=== PATIENT | male | born 1995 | race Caucasian/White ===

== ENCOUNTER 2024-01-12 00:13 | Emergency (ER) | payer OTHER ==
[~2024-01-12] VITALS: Ht 180.3 cm; Wt 93.2 kg
[~2024-01-12 00:13] MED LIST: CEPHALEXIN500 M1 PO
[2024-01-12 00:17] VITALS: TEMP 97.1
[2024-01-12 00:57] LABS: BASO # 0.1 K/mm3 (0.0-0.2); BASO % 0.7 % (0.0-2.0); EOS # 0.2 K/mm3 (0.0-0.7); EOS % 3.2 % (0.0-4.0); GRAN # 3.8 K/mm3 (1.4-6.5); GRAN % 52.6 % (42.2-75.2); HEMATOCRIT 41.3 % (42.0-52.0); HEMOGLOBIN 14.1 g/dl (13.5-18.0); LYMPH # 2.2 K/mm3 (1.2-3.4); LYMPH % 30.8 % (20.0-51.0); MEAN CELL VOLUME 84 fl (80.0-100.0); MEAN CORPUSCULAR HEMOGLOBIN 29 pg (27-31); MEAN CORPUSCULAR HGB CONC 34 g/dl (33.0-37.0); MEAN PLATELET VOLUME 10.1 fl (7.4-10.4); MONO # 0.9 K/mm3 (0.1-0.6); MONO % 12.4 % (1.7-9.3); PLATELET COUNT 240 K/mm3 (130-400); RED BLOOD COUNT 4.94 M/mm3 (4.20-5.60); REDCELL DISTRIBUTION WIDTH-CV 12.7 % (11.5-14.5)
[2024-01-12 01:06] LABS: INR 1.1 (0.8-3.0); PROTHROMBIN TIME 12.3 SECONDS (9.7-12.8)
[2024-01-12 01:09] LABS: PARTIAL THROMBOPLASTIN TIME 28.9 SECONDS (26.0-37.0)
[2024-01-12 01:15] LABS: ALANINE AMINOTRANSFERASE 55 U/L (0-55); ALKALINE PHOSPHATASE 81 U/L (40-150); ANION GAP 11 mmol/L (7-16); AST,SGOT 33 U/L (5-34); BILIRUBIN,TOTAL 0.4 mg/dL (0.2-1.2); BLOOD UREA NITROGEN 15 mg/dL (9-21); CALCIUM 8.5 mg/dL (8.4-10.2); CHLORIDE 103 mEq/L (98-107); CREATININE, serum 0.82 mg/dL (0.72-1.25); GLUCOSE 111 mg/dL (70-99); LIPASE 32 U/L (8-78); POTASSIUM 3.3 mEq/L (3.5-4.5); SODIUM 138 mEq/L (136-145); TOTAL PROTEIN 7.3 g/dl (6.2-8.1)
[2024-01-12 01:21] LABS: D-DIMER < 200.00 ng/mLDDu (200-230)
[2024-01-12 01:43] LABS: TROPONIN-I < 0.010 ng/mL (0.00-0.033)
[2024-01-12 02:22] VITALS: BP 147/95; PULSE 79
== END 2024-01-12 02:26 | disposition home or self-care (01) ==
LOC: COL.ER 00:13
PROVIDERS: Emergency Medicine
DX: R07.89 Other chest pain (principal); I10 Essential (primary) hypertension